=== PATIENT | female | born 1975 | race Caucasian/White ===

== ENCOUNTER 2020-02-06 04:44 | Day surgery (SDC) | payer OTHER ==
[2020-02-05 14:48] VITALS: BMI 27.4
--- NOTE | 2020-02-06 10:31 | HP ---
Admitting History and Physical - Admission Chief Complaint: Right Sided Low back Pain History of Present Illness: The patient complains of right sided low back pain History Source: Patient - Past Medical History ...LMP: 01/31/20 ...: No - Smoking History Smoking history: Never smoked Have you smoked in the past 12 months: No Home Medications - Allergies Allergies/Adverse Reactions: Allergies Allergy/AdvReac Type Severity Reaction Status Date / Time No Known Allergies Allergy Verified 02/05/20 14:48 - Home Medications Home Medications: Ambulatory Orders Levothyroxine [Synthroid -] 75 mcg PO DAILY 02/05/20 Review of Systems - Review of Systems Constitutional: reports: No Symptoms Eyes: reports: No Symptoms HENT: reports: No Symptoms Neck: reports: No Symptoms Cardiovascular: reports: No Symptoms Respiratory: reports: No Symptoms Gastrointestinal: reports: No Symptoms Genitourinary: reports: No Symptoms Breasts: reports: No Symptoms Reported Musculoskeletal: reports: Back Pain Integumentary: reports: No Symptoms Neurological: reports: No Symptoms Endocrine: reports: No Symptoms Hematology/Lymphatic: reports: No Symptoms Psychiatric: reports: No Symptoms Physical Examination Vital Signs: Vital Signs Temperature 97.7 F 02/06/20 08:33 Pulse Rate 77 02/06/20 08:33 Respiratory Rate 20 02/06/20 08:33 Blood Pressure 125/73 02/06/20 08:33 O2 Sat by Pulse Oximetry (%) 99 02/06/20 08:35 Imaging - Results MRI: Image Reviewed Assessment/Plan The patients low back pain is likley secondary to lumbar spondylosis on the right. I will schedule diagnostic Lumbar medial branch blocks at L3 L4 L5 on the right.
[2020-02-06] MEDS ORDERED: BUPIVACAINE HCL/PF 0.75% 10 ML VIAL NR ONE (11:22)
[2020-02-06] MEDS ORDERED: LIDOCAINE HCL 1% PRESERVATIVE FREE - 30ML VIAL NR ONE (11:23)
[2020-02-06 11:50] VITALS: BP 103/67; PULSE 60; TEMP 97.6
--- NOTE | 2020-02-11 13:52 | PROC ---
Procedure Note Procedure: Preprocedure Diagnosis: Lumbar Spondylosis Post Procedure Diagnosis: same Anesthesia:Local Procedure Performed: right L3 L4 L5 medial Branch Block under flouroscopic guidance Procedure: After the risks and benefits were explained, informed consent was obtained. The patient was then taken to the procedure room and positioned prone on the procedure table. Time out was performed. The region overlying the appropriate vertebral bodies was identified using fluoroscopy. The skin was prepped and draped in the usual sterile fashion. The skin and soft tissues were anesthetized using 1% lidocaine. Using fluoroscopic guidance, 22 gauge 3.5 inch spinal needles were then introduced to the juncture of the superior articular processes and the transverse processes of the RIGHT L3, L4, and L5 medial branches are located. Omnipaque 180 confirmed appropriate needle placement. There was no epidural or vascular flow observed. .75% bupivacaine was drawn into a syringe. 0.5cc of this solution was then injected at each level. The patient tolerated the procedure well and there were no complications. The patient was taken to the post procedure recovery area in good condition. Vital signs remained stable before, and after the procedure. The patient was given oral follow-up instructions.The patient was givena follow up appointment with me in the near future. Rory Garland D.O.
== END 2020-02-06 12:34 | disposition home or self-care (01) ==
LOC: JASU-SURG 04:44
PROVIDERS: ATTEND Pain Medicine Pain Medicine
PROC: BR16YZZ Fluoroscopy of Lumbar Facet Joint(s) using Other Contrast (ICD-10-PCS; 2020-02-06)
PROC: 3E0T3BZ Introduction of Anesthetic Agent into Peripheral Nerves and Plexi, Percutaneous Approach (ICD-10-PCS; principal; 2020-02-06 10:00)
DX: M47.896 Other spondylosis, lumbar region (principal)
CPT/HCPCS: 76000-TC-FY; 84703

== ENCOUNTER 2020-04-23 04:57 | Day surgery (SDC) | payer OTHER ==
[2020-04-22 17:15] VITALS: BMI 27.4
--- NOTE | 2020-04-22 21:18 | PROC ---
Procedure Note Procedure: Pre procedure Diagnosis: Sacroiliac Joint Dysfunction Post Procedure Diagnosis: same Anesthesia: local Procedure Performed: Right Sacroiliac Joint Injection Under Fluoroscopic Guidance After the risks and benefits were explained, informed consent was obtained. The patient was then taken to the procedure room and positioned prone on the procedure table. Time out was performed. The region overlying the right sacroiliac joint was identified using fluoroscopy. The skin was prepped and draped in the usual sterile fashion. The skin and soft tissues were anesthetized using 2% lidocaine. Using fluoroscopic guidance, a 22 gauge 3.5 inch spinal needle was then introduced to the inferior aspect of the posterior Right sacroiliac joint. Omnipaque 180 confirmed appropriate needle placement. 1 cc .5% bupivacaine and 1 cc Kenalog was then injected. The patient tolerated the procedure well and there were no complications. The patient was taken to the post procedure recovery area in good condition. Vital signs remained stable before, during, and after the procedure. The patient was given oral and written follow-up instructions. The patient was given a follow up appointment with me in the near future. Rory Garland DO
[2020-04-23] MEDS ORDERED: DEXAMETHASONE SOD PHOSPHATE/PF 10 MG/ML SDV ONE (07:26)
[2020-04-23] MEDS ORDERED: LIDOCAINE HCL/PF 1% SDV 5ML VIAL ONE (07:26)
[2020-04-23] MEDS ORDERED: BUPIVACAINE HCL/PF 0.25% (2.5MG/ML) 10 ML VIAL ONE (07:27)
[2020-04-23 07:58] VITALS: TEMP 98
[2020-04-23] MEDS ORDERED: TRIAMCINOLONE ACET 40MG/1ML VIAL ONE (09:17)
[2020-04-23] MEDS ORDERED: IOHEXOL 180 MG/1 ML ML IJ ONE ×2 (09:27)
[2020-04-23] MEDS ORDERED: LIDOCAINE 1% P/F 10 MG/ML VIAL SNB ONE (09:27)
[2020-04-23] MEDS ORDERED: TRIAMCINOLONE ACETONIDE 40 MG/ML 10 ML VIAL IJ ONE (09:27)
[2020-04-23] MEDS ORDERED: BUPIVACAINE HCL/PF 0.75% 10 ML VIAL PNB ONE ×2 (09:28)
[2020-04-23 09:51] VITALS: BP 116/74; PULSE 64
== END 2020-04-23 10:30 | disposition home or self-care (01) ==
LOC: JASU-SURG 04:57
PROVIDERS: ATTEND Pain Medicine Pain Medicine
PROC: 3E0T3BZ Introduction of Anesthetic Agent into Peripheral Nerves and Plexi, Percutaneous Approach (ICD-10-PCS; 2020-04-23)
PROC: 3E0T33Z Introduction of Anti-inflammatory into Peripheral Nerves and Plexi, Percutaneous Approach (ICD-10-PCS; principal; 2020-04-23 09:00)
DX: M53.3 Sacrococcygeal disorders, not elsewhere classified (principal)
CPT/HCPCS: 76000-TC-FY; 84703

== ENCOUNTER 2020-07-30 04:24 | Day surgery (SDC) | payer OTHER ==
[2020-07-27 15:07] VITALS: BMI 27.4
[2020-07-30] MEDS ORDERED: LIDOCAINE HCL 1% PRESERVATIVE FREE - 30ML VIAL IJ ONE (11:18)
[2020-07-30] MEDS ORDERED: IOHEXOL 180 MG/1 ML ML IJ ONE (11:18)
[2020-07-30] MEDS ORDERED: BUPIVACAINE HCL/PF 0.75% 10 ML VIAL NR ONE (11:18)
[2020-07-30 11:39] VITALS: TEMP 98.6
[2020-07-30 11:57] VITALS: BP 110/67; PULSE 72
== END 2020-07-30 11:59 | disposition home or self-care (01) ==
LOC: JASU-SURG 04:24
PROVIDERS: ATTEND Pain Medicine Pain Medicine
PROC: 3E0T33Z Introduction of Anti-inflammatory into Peripheral Nerves and Plexi, Percutaneous Approach (ICD-10-PCS; 2020-07-30)
PROC: 3E0T3BZ Introduction of Anesthetic Agent into Peripheral Nerves and Plexi, Percutaneous Approach (ICD-10-PCS; principal; 2020-07-30 11:00)
DX: M47.816 Spondylosis without myelopathy or radiculopathy, lumbar region (principal)
CPT/HCPCS: 76000-TC-FY; 81025

== ENCOUNTER 2022-06-20 04:39 | Day surgery (SDC) | payer OTHER ==
[2022-06-16 15:04] VITALS: BMI 27.4
[2022-06-20] MEDS ORDERED: LIDOCAINE HCL/PF 1% SDV 5ML VIAL ONE (07:31)
[2022-06-20] MEDS ORDERED: TRIAMCINOLONE ACET 40MG/1ML VIAL ONE (07:31)
[2022-06-20] MEDS ORDERED: BUPIVACAINE HCL/PF 0.5% (5MG/ML) 10 ML VIAL ONE (07:31)
[2022-06-20] MEDS ORDERED: SODIUM CHLORIDE 0.9% P/F 10 ML VIAL IJ ONE (07:55)
[2022-06-20] MEDS ORDERED: TRIAMCINOLONE ACET 40MG/1ML VIAL NR ONE (10:30)
[2022-06-20] MEDS ORDERED: IOHEXOL 180 MG/1 ML ML IJ ONE ×2 (10:30)
[2022-06-20] MEDS ORDERED: TRIAMCINOLONE ACETONIDE 40 MG/ML 10 ML VIAL NR ONE (10:30)
[2022-06-20] MEDS ORDERED: LIDOCAINE HCL 1% PRESERVATIVE FREE - 30ML VIAL NR ONE (10:30)
[2022-06-20] MEDS ORDERED: BUPIVACAINE HCL/PF 0.5% (5MG/ML) 10 ML VIAL NR ONE (10:30)
[2022-06-20 11:35] VITALS: BP 112/70; PULSE 85; RESP 16; TEMP 97.3
== END 2022-06-20 11:24 | disposition home or self-care (01) ==
LOC: JASU-SURG 04:39
PROVIDERS: ATTEND Pain Medicine Pain Medicine
PROC: 3E0U3BZ Introduction of Anesthetic Agent into Joints, Percutaneous Approach (ICD-10-PCS; 2022-06-20)
PROC: 3E0U33Z Introduction of Anti-inflammatory into Joints, Percutaneous Approach (ICD-10-PCS; principal; 2022-06-20 10:30)
DX: M53.3 Sacrococcygeal disorders, not elsewhere classified (principal)
CPT/HCPCS: 76000-TC-FY; 81025